=== PATIENT | male | born 1995 | race African-American/Black ===

== ENCOUNTER 2016-11-28 21:11 | Emergency (ER) | payer OTHER ==
[~2016-11-28] VITALS: Ht 180.3 cm; Wt 117.9 kg
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
[2016-11-28 22:05] LABS: ABSOLUTE BASOPHIL COUNT 0 /CUMM (0.0-0.2); ABSOLUTE EOSINOPHIL COUNT 0.6 /CUMM (0.0-0.7); ABSOLUTE GRANULOCYTE CT 3.2 /CUMM (1.4-6.5); ABSOLUTE LYMPH COUNT 2.7 /CUMM (1.2-3.4); ABSOLUTE MONOCYTE COUNT 0.6 /CUMM (0.10-0.60); BASOPHIL % 0.5 % (0.0-2.0); EOSINOPHIL % 8.4 % (0-5); GRANULOCYTE % 44.5 % (42.2-75.2); HEMATOCRIT 45.3 % (42-52); MEAN CORPUSCULAR HGB 26.9 PG (27.0-31.0); MEAN CORPUSCULAR HGB CONC 32.5 G/DL (33.0-37.0); MEAN CORPUSCULAR VOLUME 82.5 FL (80.0-94.0); MEAN PLATELET VOLUME 7.7 FL (7.4-10.4); PLATELET COUNT 373 /CUMM (130-400); RBC DISTRIBUTION WIDTH 14.6 % (11.5-14.5); RED BLOOD CELL CT 5.49 /CUMM (4.70-6.10); WHITE BLOOD CELL COUNT 7.1 /CUMM (4.8-10.8)
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
[2016-11-29 08:35] VITALS: BP 148/87
== END 2016-11-29 09:21 ==
LOC: ERH 21:11
PROVIDERS: Emergency Medicine
DX: F32.9 Major depressive disorder, single episode, unspecified (principal); F12.10 Cannabis abuse, uncomplicated
CPT/HCPCS: 80307; G0463; G0480

== ENCOUNTER 2018-03-27 13:37 | Inpatient (IN) | payer OTHER ==
[~2018-03-27] VITALS: Ht 180.3 cm; Wt 116.6 kg
--- NOTE | 2018-03-27 14:20 | ED GENERAL ADULT ---
History of Present Illness General Chief Complaint: Psychiatric Related Complaint Stated Complaint: PSYCH Source: patient, EMS Exam Limitations: no limitations Vital Signs & Intake/Output Vital Signs & Intake/Output Vital Signs Date Time Temp Pulse Resp B/P B/P Pulse O2 O2 Flow FiO2 Mean Ox Delivery Rate 03/27 2346 97.2 94 141/79 03/27 2225 83 17 139/69 99 Room Air 03/27 1745 97.8 88 18 124/75 98 03/27 1545 98.3 94 18 133/76 98 03/27 1355 99.1 93 17 117/89 97 Room Air ED Intake and Output 03/28 0000 03/27 1200 Intake Total Output Total 200 Balance -200 Output, Urine 200 Patient 257 lb Weight Allergies Coded Allergies: pollen extracts (UNKNOWN 11/28/16) Triage Note: PT TO ED BY AMUBLANCE ON A PEER FOR EVAL OF SI STATEMENT MADE TO BROTHER AFTER AN ARGUMENT WITH HIS . PT DENIES SI/HI ON ARRIVAL TO ED. DOES REPORT SI COMMENTS IN PAST WITH NO ATTEMPTS. Triage Nurses Notes Reviewed? yes Onset: Abrupt Duration: hour(s): Timing: single episode today HPI: 23-year-old male with a prior history of suicidal ideation approximately 1 year presenting on a PEER for suicidal ideation. Patient reports that he was arguing with his on the telephone and made suicidal and homicidal ideation comments. He states that he did not mean his comments and that he was just caught up in the heat of the moment. On arrival to the emergency department he denies SI/HI. He denies EtOH or drug use. He denies any recent pain or trauma. (Mireya Cisneros) Reconcile Medications Multiple Vitamin (Multivitamins) 1 EACH TABLET 1 TAB PO DAILY SUPPLEMENT ( Reported) Phentermine HCl (Adipex-P) 37.5 MG CAPSULE 1 CAP PO DAILY WEIGHT LOSS ( Reported) (Tristen TIWARI,Hussein Coyne) Past History Travel History Traveled to [place] past 21 day No Medical History Any Pertinent Medical History? none Surgical History Surgical History: non-contributory Psychosocial History Who do you live with Other (see notes) What is your primary language Upper Sorbian Tobacco Use: Current Not Daily Daily Tobacco Use Amount/Type: =< 4 Cigarettes daily ETOH Use: occasional use Illicit Drug Use: denies illicit drug use Family History Hx Contributory? No (Mireya Cisneros) Review of Systems Review of Systems Constitutional: Reports: no symptoms. EENTM: Reports: no symptoms. Respiratory: Reports: no symptoms. Cardiovascular: Reports: no symptoms. GI: Reports: no symptoms. Genitourinary: Reports: no symptoms. Musculoskeletal: Reports: no symptoms. Skin: Reports: no symptoms. Neurological/Psychological: Reports: see HPI. Hematologic/Endocrine: Reports: no symptoms. Immunologic/Allergic: Reports: no symptoms. All Other Systems: Reviewed and Negative (Mireya Cisneros) Physical Exam Physical Exam General Appearance: well developed/nourished, no apparent distress, alert, awake , comfortable Comments: Gen.: Well-nourished, well-developed, no acute distress. Head: Normocephalic, atraumatic. Eyes: Normal inspection bilaterally Ears: Normal inspection bilaterally Nose: Normal inspection Neck: Normal inspection Lungs: clear to auscultation bilaterally, normnal breath sounds Heart: regular rate and rhythm Abdomen: soft and non-tender Extremities: Normal inspection Neurologic: alert and oriented x3, steady gait Skin: warm and dry Psychiatric: Normal mood and affect, no apparent delusions or hallucinations, behavior appropriate Core Measures ACS in differential dx? No CVA/TIA Diagnosis: No Sepsis Present: No Sepsis Focused Exam Completed? No (Mireya Cisneros) Progress Differential Diagnoses I considered the following diagnoses in my evaluation of the patient: [ Depression versus suicidal ideation versus Lebron] Plan of Care: Orders Procedure Date/time Status Regular Diet 03/28 B Active Vital Signs 03/28 0043 Active Inpt Psych Teach/Educate 03/28 0043 Active Nutritional Intake, Monitor 03/28 0043 Active Inpt Psych Auricular Acupunctu 03/28 0043 Active Regular Diet 03/27 D Complete Admit to inpatient psych 03/27 2040 Active Patient Data - inpatient psych 03/27 2008 Active Admit to inpatient psych 03/27 2008 Active Continuous Observation Monitor 03/27 1420 Complete ED CRISIS PSYCH CONSULT 03/27 1420 Active ETHANOL 03/27 1419 Complete COMPREHENSIVE METABOLIC PANEL 03/27 1419 Complete CBC WITHOUT DIFFERENTIAL 03/27 1419 Complete Intake & Output 03/27 1356 Complete URINE DRUG SCREEN FOR ER ONLY 03/27 1343 Complete URINALYSIS 03/27 1343 Complete Vital Signs 03/27 UNK Active Nursing Misc 03/27 UNK Active Activity/Ambulation 03/27 UNK Active Current Medications Sig/Moses Start time Last Medication Dose Stop Time Status Admin Nicotine 2 MG Q2 HRS NEEDED PRN 03/27 2030 AC (Nicotine) Acetaminophen 650 MG Q4P PRN 03/27 2015 AC (Tylenol) Al Hydroxide/Mg 30 ML Q4-6 PRN PRN 03/27 2015 AC Hydroxide (Maalox Plus) Benztropine Mesylate 1 MG Q6P PRN 03/27 2015 AC (Cogentin 1 MG Tablet) Benztropine Mesylate 1 MG Q6P PRN 03/27 2015 AC (Cogentin) Haloperidol 5 MG Q6P PRN 03/27 2015 AC (Haldol) Haloperidol 5 MG Q6P PRN 03/27 2015 AC (Haldol) Lorazepam 2 MG Q4 HRS NEEDED PRN 03/27 2015 AC (Ativan) Lorazepam 2 MG Q6P PRN 03/27 2015 AC 03/27 (Ativan) 2112 Lorazepam 2 MG Q6P PRN 03/27 2015 AC (Ativan) Magnesium Hydroxide 30 ML AT BEDTIME PRN 03/27 2015 AC (Milk Of Magnesia) Laboratory Tests 03/27/18 1453: Anion Gap 10, Estimated GFR > 60, BUN/Creatinine Ratio 12.0, Glucose 103 H, Calcium 10.5 H, Total Bilirubin 1.1, AST 24, ALT 38, Alkaline Phosphatase 90, Total Protein 8.0, Albumin 5.0, Globulin 3.0, Albumin/Globulin Ratio 1.7, CBC w Diff NO MAN DIFF REQ, RBC 5.60, MCV 83.5, MCH 27.6, MCHC 33.1, RDW 14.3, MPV 7.7 , Gran % 69.4, Lymphocytes % 19.8 L, Monocytes % 8.6, Eosinophils % 1.9, Basophils % 0.3, Absolute Granulocytes 4.6, Absolute Lymphocytes 1.3, Absolute Monocytes 0.6, Absolute Eosinophils 0.1, Absolute Basophils 0, Serum Alcohol < 10.0 03/27/18 1347: Urine Opiates Screen < 100, Methadone Screen < 40, Barbiturate Screen < 60, Ur Phencyclidine Scrn < 6.00, Amphetamines Screen 316, U Benzodiazepines Scrn < 85, Urine Cocaine Screen < 50, Urine Cannabis Screen > 80.00 H, Urine Color YEL, Urine Clarity CLEAR, Urine pH 7.0, Ur Specific [place] 1.015, Urine Protein NEG, Urine Ketones NEG, Urine Nitrite NEG, Urine Bilirubin NEG, Urine Urobilinogen 0.2, Ur Leukocyte Esterase NEG, Ur Microscopic EXAM NOT REQUIRED, Urine Hemoglobin NEG, Urine Glucose NEG Urine tox is positive for cannabis, otherwise labs and urine unremarkable. Patient to be admitted to [facility]. Initial ED EKG: none (Mireya Cisneros) Departure Departure Disposition: STILL A PATIENT Condition: Stable Clinical Impression Primary Impression: Suicidal ideation Secondary Impressions: Homicidal ideation Referrals: Janeth Espinosa MD (PCP/Family) Departure Forms: Customer Survey General Discharge Information (Mireya Cisneros) Psych Admission Note Psychiatric Admission: I have seen and evaluated BETTY VALENZUELA. I have also reviewed all the pertinent lab results and diagnostic results. BETTY VALENZUELA will be admitted to our inpatient Psychiatric unit for treatment and care. PA/MILL LABORER Co-Sign Statement Statement: ED Attending supervision documentation- [x] I saw and evaluated the patient. I have also reviewed all the pertinent lab results and diagnostic results. I agree with the findings and the plan of care as documented in the PA's/MILL LABORER's documentation. [] I have reviewed the ED Record and agree with the PA's/MILL LABORER's documentation. [] Additions or exceptions (if any) to the PAs/MILL LABORER's note and plan are summarized below: [] (Tristen TIWARI,Hussein Coyne) Critical Care Note Critical Care Note Critical Care Time: non-applicable (Mireya Cisneros)
[2018-03-27 15:07] LABS: ABSOLUTE BASOPHIL COUNT 0 /CUMM (0.0-0.2); ABSOLUTE EOSINOPHIL COUNT 0.1 /CUMM (0.0-0.7); ABSOLUTE GRANULOCYTE CT 4.6 /CUMM (1.4-6.5); ABSOLUTE LYMPH COUNT 1.3 /CUMM (1.2-3.4); ABSOLUTE MONOCYTE COUNT 0.6 /CUMM (0.10-0.60); BASOPHIL % 0.3 % (0.0-2.0); EOSINOPHIL % 1.9 % (0-5); HEMATOCRIT 46.7 % (42-52); MEAN CORPUSCULAR HGB 27.6 PG (27.0-31.0); MEAN CORPUSCULAR HGB CONC 33.1 G/DL (33.0-37.0); MEAN CORPUSCULAR VOLUME 83.5 FL (80.0-94.0); MEAN PLATELET VOLUME 7.7 FL (7.4-10.4); PLATELET COUNT 435 /CUMM (130-400); RBC DISTRIBUTION WIDTH 14.3 % (11.5-14.5); WHITE BLOOD CELL COUNT 6.7 /CUMM (4.8-10.8)
[2018-03-27 15:10] LABS: GRANULOCYTE % 69.4 % (42.2-75.2)
[2018-03-27] MEDS ORDERED: ADIPEX-P37.5 MG PO (17:57)
[2018-03-27] MEDS ORDERED: MULTIVITAMINS1 EAC9 PO (17:58)
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
[2018-03-27 23:46] VITALS: BP 141/79
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
[2018-03-28 10:07] VITALS: BP 122/78
--- NOTE | 2018-03-28 13:32 | Patient Discharge Instructions ---
Psych Discharge Inst General Discharge Information Reason for Admission: thoughts of suicide Psy Discharge Primary Diag+ Unspecified Depressive DO Summary Tests/Major Procedures No significant lab abnormalities Studies Pending at DC: None Patient Instructions Contact Information Your Psychiatrist on [facility] was Cholo Chairez MD * If you are experiencing an emergency related to this hospitalization, please call [phone] to contact the treating psychiatrist or the psychiatrist-on- call. * To Request a copy of your medical records, please contact the Medical Records Department at [phone]. * To request results of studies pending at the time of discharge, please call [phone]. * Continue your Medications until directed to stop by your Healthcare provider. General Medication Information Please continue to take your new medications and your continued home medications , unless otherwise indicated on your discharge medication list, or unless directed by your MD or [employer] to stop them. Special Instructions Diet Regular Activity Normal - Tobacco Use Treatment Offered Post DC Medications Offered: Refused Tob Medication Tx Post DC Tobacco Treatment Plan: Refused Tobacco Tx Pgm - EtOH/Drug Use D/O Treatment Offered Post DC Medications Offered: NA-No EtOH/Drug Use D/O Post DC EtOH/SubAbuse TX Plan: NA-No EtOH/Drug Use D/O Metabolic Screening Not Applicable, patient not on a neuroleptic. Advance Directives Does the Patient have Medical Advance Directives No/Refused further info Does Pt have Psychiatric Advance Directives? No/Refused further info Does Patient have a Designated Surrogate Decision Maker: No Information About Psychiatric Advance Directives Provided? Refused Discharge Plan Post Hospital Treatment Plan: [facility]. Friday at 7PM
--- NOTE | 2018-03-28 13:34 | DISCHARGE SUMMARY REPORT-PSYCH ---
Visit Information Visit Dates/Diagnosis' Admission Date: 03/27/18 Discharge Date: 03/28/18 Reason for Admission: thoughts of suicide Psy Discharge Primary Diag: Unspecified Depressive DO Psy Discharge Secondary Diag: Cannabis use Disorder Hospital Course Significant Lab Findings: Lab Urine Cannabis Screen > 80.00 NG/ML H 03/27/18 1347 Course Complications: Patient did not have any complications while he was on the inpatient psychiatric unit. Consultations: There were no consultations Allergies: Coded Allergies: pollen extracts (UNKNOWN 11/28/16) Hospital Course/TX Response: The patient was admitted yesterday on discharge today please refer to the initial psychiatric assessment as it has all the details of the patient's short hospitalization Discharge HBIPS - Tobacco Use Treatment Offered Post DC Medications Offered: Refused Tob Medication Tx Post DC Tobacco Treatment Plan: Refused Tobacco Tx Pgm - EtOH/Drug Use D/O Treatment Offered Post DC Medications Offered: Med Not Indicated for D/O Post DC EtOH/SubAbuse TX Plan: Refused Post DC Tx Pgm Metabolic Screening - Screen if on a Neuroleptic Medication - Metabolic screening should include: - Blood Pressure, BMI, Glucose or Hgb A1c, & a - Lipid profile from within the past 365 days. Metabolic Screening Not Applicable, patient not on a neuroleptic. Discharge Instructions General Discharge Information Multiple Neuroleptics: Not Applicable Discharge Diet Regular Discharge Activity Normal DC Disposition: Home Referrals Ordered Referrals Provider Referral For Providers: [Bharti Childs LCSW] For Groups: [[facility] joleen Childs LCSW 7 PM on Friday Prescriptions Stop taking the following medications: Phentermine HCl (Adipex-P) 37.5 MG CAPSULE ORAL DAILY Continue taking these medications: Multiple Vitamin (Multivitamins) 1 EACH TABLET 1 Tablet ORAL DAILY Comments: Last Taken:NOT GIVEN IN THE HOSPITAL Time: Studies Pending at Discharge None Copies To: [facility] in [place]
== END 2018-03-28 14:33 | DRG 881 ==
LOC: ERH 13:37 → CP SOUTH 20:40 → ERHI 20:40 → CP SOUTH 23:36
PROVIDERS: Physician Assistant
DX: F32.9 Major depressive disorder, single episode, unspecified (principal)
CPT/HCPCS: 80307; 81003; G0463; G0480